=== PATIENT | male | born 1955 | race Caucasian/White ===

== ENCOUNTER 2025-07-27 06:45 | Day surgery (SDC) | payer MEDICARE ==
[~2025-07-27 06:45] MED LIST: Sodium Chloride 0.9% 10 ML Syringe FLUSH PRN; Sodium Chloride 0.9% 10 ML Syringe FLUSH SCH
[2025-07-27] MEDS: Lactated Ringers 1,000 ML IV SCH (07:10)
[2025-07-27] MEDS ORDERED: dexmedeTOMIDine HCl 200 MCG/2 ML SDV ONE (07:12)
[2025-07-27] MEDS ORDERED: propofoL 500 MG/50 ML 50 ML ONE (07:12)
[2025-07-27] MEDS ORDERED: Ondansetron 4 MG/2 ML SDV ONE (07:12)
[2025-07-27] MEDS ORDERED: Midazolam 1 MG/ML 2 ML SDV ONE (07:12)
[2025-07-27] MEDS: oxyCODONE ER 10 MG TAB.ER PO ONE (07:36)
[2025-07-27 07:49] LABS: INR 1.04
[2025-07-27 07:50] LABS: PTT,PARTIAL THROMBOPLSTIN TIME 28.3 SECONDS (21.7-31.4)
[2025-07-27] MEDS ORDERED: ePHEDrine 50 MG/ML SDV ONE (08:09)
[2025-07-27] MEDS ORDERED: Lactated Ringers 1,000 ML ONE (08:11)
[2025-07-27] MEDS ORDERED: Ropivacaine 0.5% 5 MG/ML 30 ML SDV ONE (08:39)
[2025-07-27] MEDS ORDERED: fentaNYL 100 MCG/2 ML SDV ONE ×2 (08:53→09:33)
[2025-07-27] MEDS ORDERED: Propofol 200 MG/20 ML SDV ONE (09:11)
[2025-07-27] MEDS: Morphine 8 MG, EPINEPHrine 0.3 MG, Cefuroxime 750 MG, Ketorolac 30 MG, Sodium Chloride ... PRN (09:16)
[2025-07-27] MEDS: fentaNYL 100 MCG/2 ML SDV IVPUSH PRN (09:55)
[2025-07-27] MEDS: Ondansetron 4 MG/2 ML SDV IVPUSH PRN (13:45)
== END 2025-07-27 14:10 | disposition home or self-care (01) ==
LOC: JD.SDS 06:45
PROVIDERS: ATTEND Orthopaedic Surgery
DX: M17.11 Unilateral primary osteoarthritis, right knee (principal); I10 Essential (primary) hypertension; E03.9 Hypothyroidism, unspecified; E78.00 Pure hypercholesterolemia, unspecified; Z79.899 Other long term (current) drug therapy; Z79.890 Hormone replacement therapy
CPT/HCPCS: 0055T; 27447; 36415; 64447; 73560; 85610; 85730; 97116; 97161; A9270; C1713; C1776; J0169; J0690; J0697; J1885; J2272; J2405; J2704; J2795; J3010; J3373; J7120; 01402; J2250; J3490